=== PATIENT | female | born 1975 | race Hispanic/Latino ===

== ENCOUNTER 2021-03-13 21:07 | Emergency (ER) | payer SELFPAY ==
[~2021-03-13] VITALS: Ht 147.3 cm; Wt 68.0 kg
[~2021-03-13 21:07] MED LIST: BACTRIM DS1 TAB PO; CIPROFLOXACN250 MG PO; IBUPROFEN600 MG PO; PRE-NATAL PO; TYLENOL325 MG PO; ZOFRAN ODT4 MG PO
[2021-03-13 23:39] LABS: HEMATOCRIT 33.1 % (37.0-47.0); HEMOGLOBIN 10.1 g/dl (12.0-16.0); IMMATURE GRANULOCYTES 0.2 % (0.0-5.0); MEAN CORPUSCULAR HGB 24.6 pG CALC (26.0-32.0); MEAN CORPUSCULAR HGB CONC 30.5 g/dL CAL (32.0-36.0); NEUT# 6.52 thou/uL (2.00-7.15); RED BLOOD COUNT 4.1 mill/uL (4.20-5.60)
[2021-03-13 23:41] LABS: MEAN CELL VOLUME 80.7 fL CALC (80.0-100.0)
[2021-03-13 23:54] LABS: D-DIMER 0.33 mg/L (0.19-0.60)
[2021-03-13 23:56] LABS: ALBUMIN 4.5 g/dL (3.2-5.0); ALKALINE PHOSPHATASE 76 u/l (38-126); BILIRUBIN, TOTAL 0.2 mg/dL (0.0-1.4); BUN 15 mg/dL (7-17); BUN/CREATININE RATIO 25 (12-20 (CALC)); CHLORIDE 101 mmol/l (95-108); CREATININE 0.6 mg/dL (0.5-1.0); GFR > 60 ML/MIN (>=60 (CALC)); GFR FOR AFR.AMER. > 60 ML/MIN (>=60 (CALC)); SGOT/AST 32 u/l (14-36); SODIUM 139 mmol/l (137-146); TOTAL PROTEIN 8.3 g/dL (6.3-8.2)
[2021-03-13 23:57] LABS: ANION GAP 13 (6-22 (CALC)); CARBON DIOXIDE 28 mmol/l (22-30); POTASSIUM 3.2 mmol/l (3.5-5.1)
[2021-03-13 23:59] LABS: PROTHROMBIN TIME 10.7 SECONDS (9.0-12.5)
[2021-03-14 00:08] LABS: MYOGLOBIN 58 ng/mL (0 - 62)
[2021-03-14] MEDS ORDERED: TORADOL PO (00:49)
[2021-03-14 01:11] VITALS: BP 110/64
== END 2021-03-14 01:20 | disposition home or self-care (01) | DRG 313 ==
LOC: ED 21:07
PROVIDERS: Family Medicine
DX: R07.89 Other chest pain (principal); Z20.822 Contact with and (suspected) exposure to COVID-19

== ENCOUNTER 2021-10-15 21:21 | Emergency (ER) | payer SELFPAY ==
[~2021-10-15] VITALS: Ht 147.3 cm; Wt 77.0 kg
[~2021-10-15 21:21] MED LIST changes: +TORADOL PO
[2021-10-15 21:30] VITALS: BP 142/71
[2021-10-15] MEDS ORDERED: GENTAMICIN SULF5 ML OD (21:43)
[2021-10-15] MEDS ORDERED: (None)3.5 GM OD (21:43)
[2021-10-15 21:46] VITALS: BP 107/57
[2021-10-15 21:52] VITALS: BP 142/71
== END 2021-10-15 21:57 | disposition home or self-care (01) | DRG 125 ==
LOC: ED 21:21
DX: H00.012 Hordeolum externum right lower eyelid (principal)